=== PATIENT | female | born 1930 | race Caucasian/White ===

== ENCOUNTER → 2016-09-16 | Outpatient (CLI) | payer MEDICARE, OTHER ==
[~2016-09-16] MED LIST: ADVIL200 MG PO; ALEVE 220MG220 MG PO; ALLEGRA 180MG180 MG PO; ALLEGRA ALLERG180 MG PO; ASPIRIN 81M81 MG/TA2 PO; ASPIRIN E.C. 8181 MG PO; ATARAX 25MG25 MG/TAB PO; CALCIUM + D 6001 TA1 PO; CALCIUM CARBONATE; COZAAR100 MG PO; D-31000 IU PO; DOXYCYCLINE 10100 MG PO; EPA FISH OIL1000 MG PO; ESTER-C 5001 TAB PO; FERROUS SULFATE65 MG PO; HALCION0.25 MG PO; LEVAQUIN 5500 MG/TA1 PO; LOPRESSOR 225 MG/TAB PO; MASON NATURAL1200 MG PO; NASACORT AQ N16.5 GM NS; NATURE'S BLE1000 MCG PO; PRILOSEC 20MG20 MG PO; PRINZIDE 12.5 M1 TAB PO; PROBIOTIC-MAJOR PO; ULTRAM 50MG TAB50 MG PO; VITAMIN C500 MG PO; VITAMIN D 1001000 IU PO; ZANTAC 300300 MG PO
== END ==
LOC: MC.RAD 11:21
DX: Z12.31 Encounter for screening mammogram for malignant neoplasm of breast (principal)

== ENCOUNTER → 2017-06-02 | Outpatient (CLI) | payer MEDICARE, OTHER ==
[~2017-06-02] MED LIST changes: +FISH OIL 1000MG1 CAP PO; +IMODIUM 2MG CAPS2 MG PO; +LEVAQUIN 750MG750 M1 PO; +METAMUCIL3.4 GM/DOS PO; +TAMIFLU30 MG PO
== END ==
LOC: COL.RAD 14:00
DX: S09.90XA Unspecified injury of head, initial encounter (principal)

== ENCOUNTER 2017-06-03 12:32 | Inpatient (IN) | payer MEDICARE, OTHER ==
[~2017-06-03] VITALS: Ht 165.1 cm; Wt 61.6 kg
[~2017-06-03 12:32] MED LIST changes: -FISH OIL 1000MG1 CAP PO; -IMODIUM 2MG CAPS2 MG PO; -LEVAQUIN 750MG750 M1 PO; -METAMUCIL3.4 GM/DOS PO; -TAMIFLU30 MG PO
[2017-06-03 14:03] LABS: HEMATOCRIT 41.7 % (37.0-47.0); HEMOGLOBIN 14.2 g/dl (12.5-16.0); MEAN CELL VOLUME 91 fl (80.0-100.0); MEAN CORPUSCULAR HEMOGLOBIN 31 pg (27.0-31.0); MEAN CORPUSCULAR HGB CONC 34 g/dl (33.0-37.0); PLATELET COUNT 215 K/mm3 (130-400); RED BLOOD COUNT 4.61 M/mm3 (4.10-5.30); REDCELL DISTRIBUTION WIDTH-CV 12.6 % (11.5-14.5)
[2017-06-03 14:11] LABS: ALBUMIN 4.3 gm/dL (3.5-5.0); BILIRUBIN,TOTAL 0.7 mg/dL (0.0-1.0); CALCIUM 8.7 mg/dL (8.4-10.2); CREATININE, serum 1.54 mg/dL (0.52-1.25); TOTAL PROTEIN 7.4 gm/dL (6.4-8.2)
[2017-06-03 14:28] LABS: BAND 55 % (0-10); LYMPHOCYTE 2 % (20.0-51.0); NEUTROPHILS 37 % (42.0-75.2)
[2017-06-03 14:29] LABS: PLATELET ESTIMATE NORMAL (NORMAL)
[2017-06-03 14:41] LABS: C-REACTIVE PROTEIN 17.1 mg/dL (0.0-0.9)
[2017-06-03] MEDS ORDERED: FISH OIL 1000MG1 CAP PO (14:59)
[2017-06-03] MEDS ORDERED: IMODIUM 2MG CAPS2 MG PO (15:00)
[2017-06-03] MEDS ORDERED: METAMUCIL3.4 GM/DOS PO (15:01)
[2017-06-03 15:02] LABS: ARTERIAL BLD GAS O2 SATURATION 90.4 % (92-100); ARTERIAL BLD GAS TCO2 CT 21.3; ARTERIAL BLOOD GAS BASE EXCESS -3.3 (-2-2); ARTERIAL BLOOD GAS HCO3 20.3 meq/L (22-26); ARTERIAL BLOOD GAS PCO2 32.3 mmHg (35-45); ARTERIAL BLOOD GAS pH 7.42 (7.35-7.45)
[2017-06-03 16:09] LABS: COLLECTION METHOD CLEAN CATCH
[2017-06-03 16:19] LABS: GRANULAR CAST >12 /lpf; HYALINE CAST >12 /lpf; MUCOUS Present /lpf; PH 5 (5-8); SQUAMOUS EPITHELIAL 0-2 /hpf; URINE APPEARANCE Hazy; URINE BACTERIA Rare /hpf; URINE BILIRUBIN Negative (NEGATIVE); URINE BLOOD 2+ (NEGATIVE); URINE COLOR Yellow; URINE GLUCOSE Negative (NEGATIVE); URINE KETONE Negative (NEGATIVE); URINE LEUKOCYTE ESTERASE 3+ (NEGATIVE); URINE NITRATE Negative (NEGATIVE); URINE PROTEIN(semi-quant) 1+ (NEGATIVE); URINE UROBILINOGEN Negative (NEGATIVE)
[2017-06-03 17:32] VITALS: BP 116/50; PULSE 84; TEMP 98.4
[2017-06-03 20:37] VITALS: BP 122/93; PULSE 87; TEMP 98.8
[2017-06-03 23:50] VITALS: BP 128/62; PULSE 94; TEMP 98.5
[2017-06-04 03:45] VITALS: BP 111/46; PULSE 85; TEMP 98.3
[2017-06-04 06:45] LABS: MEAN CELL VOLUME 92 fl (80.0-100.0); MEAN CORPUSCULAR HGB CONC 34 g/dl (33.0-37.0); MEAN PLATELET VOLUME 12.2 fl (7.4-10.4); PLATELET COUNT 189 K/mm3 (130-400); RED BLOOD COUNT 3.78 M/mm3 (4.10-5.30); REDCELL DISTRIBUTION WIDTH-CV 12.9 % (11.5-14.5)
[2017-06-04 06:58] LABS: CALCIUM 7.5 mg/dL (8.4-10.2); CREATININE, serum 0.88 mg/dL (0.52-1.25); MAGNESIUM 1.8 mg/dL (1.6-2.3); POTASSIUM 3.6 mmol/L (3.4-5.0)
[2017-06-04 07:07] LABS: HEMATOCRIT 34.9 % (37.0-47.0); HEMOGLOBIN 11.7 g/dl (12.5-16.0); MEAN CORPUSCULAR HEMOGLOBIN 31 pg (27.0-31.0)
[2017-06-04 08:40] VITALS: BP 118/63; PULSE 70; TEMP 98.7
[2017-06-04 09:05] LABS: BAND 33 % (0-10); LYMPHOCYTE 4 % (20.0-51.0); NEUTROPHILS 62 % (42.0-75.2); PLATELET ESTIMATE NORMAL (NORMAL)
[2017-06-04 12:36] VITALS: BP 121/44; PULSE 80; TEMP 97.9
[2017-06-04 15:55] VITALS: BP 122/82; PULSE 96; TEMP 98.3
[2017-06-04 20:17] VITALS: BP 126/78; PULSE 97; TEMP 98.3
[2017-06-04 23:16] VITALS: BP 159/63; PULSE 88; TEMP 99
[2017-06-05 03:45] VITALS: BP 133/70; PULSE 85; TEMP 97.5
[2017-06-05 06:52] LABS: MEAN CELL VOLUME 93 fl (80.0-100.0); MEAN CORPUSCULAR HGB CONC 33 g/dl (33.0-37.0); MEAN PLATELET VOLUME 11.6 fl (7.4-10.4); PLATELET COUNT 238 K/mm3 (130-400); RED BLOOD COUNT 3.65 M/mm3 (4.10-5.30); REDCELL DISTRIBUTION WIDTH-CV 13.1 % (11.5-14.5)
[2017-06-05 06:56] LABS: HEMATOCRIT 33.9 % (37.0-47.0); HEMOGLOBIN 11.2 g/dl (12.5-16.0); MEAN CORPUSCULAR HEMOGLOBIN 31 pg (27.0-31.0)
[2017-06-05 07:08] LABS: CALCIUM 7.8 mg/dL (8.4-10.2); CREATININE, serum 0.71 mg/dL (0.52-1.25); POTASSIUM 3.6 mmol/L (3.4-5.0)
[2017-06-05 07:50] LABS: BAND 29 % (0-10); LYMPHOCYTE 9 % (20.0-51.0); NEUTROPHILS 57 % (42.0-75.2)
[2017-06-05 07:51] LABS: PLATELET ESTIMATE NORMAL (NORMAL)
[2017-06-05 08:25] VITALS: BP 143/56; PULSE 97; TEMP 98
[2017-06-05 11:04] VITALS: BP 140/52; PULSE 73; TEMP 97.6
[2017-06-05 16:02] VITALS: BP 136/58; PULSE 83; TEMP 98.2
[2017-06-05 19:37] VITALS: BP 130/61; PULSE 92; TEMP 97.6
[2017-06-05 23:48] VITALS: BP 115/62; PULSE 73; TEMP 98
[2017-06-06 04:10] VITALS: BP 143/59; PULSE 81; TEMP 97.5
[2017-06-06 06:50] LABS: MEAN CELL VOLUME 92 fl (80.0-100.0); MEAN CORPUSCULAR HGB CONC 33 g/dl (33.0-37.0); MEAN PLATELET VOLUME 10.8 fl (7.4-10.4); PLATELET COUNT 328 K/mm3 (130-400); RED BLOOD COUNT 3.73 M/mm3 (4.10-5.30); REDCELL DISTRIBUTION WIDTH-CV 13.1 % (11.5-14.5)
[2017-06-06 06:58] LABS: HEMATOCRIT 34.3 % (37.0-47.0); HEMOGLOBIN 11.3 g/dl (12.5-16.0); MEAN CORPUSCULAR HEMOGLOBIN 30 pg (27.0-31.0)
[2017-06-06 07:09] LABS: CALCIUM 7.9 mg/dL (8.4-10.2); CREATININE, serum 0.68 mg/dL (0.52-1.25); POTASSIUM 3.1 mmol/L (3.4-5.0)
[2017-06-06 07:35] LABS: BAND 6 % (0-10); LYMPHOCYTE 10 % (20.0-51.0); NEUTROPHILS 75 % (42.0-75.2)
[2017-06-06 07:37] LABS: PLATELET ESTIMATE NORMAL (NORMAL)
[2017-06-06 08:01] VITALS: BP 151/76; PULSE 86; TEMP 98.4
[2017-06-06] MEDS ORDERED: TAMIFLU30 MG PO (08:40)
[2017-06-06] MEDS ORDERED: LEVAQUIN 750MG750 M1 PO (08:41)
[2017-06-06 09:44] VITALS: BP 151/76; PULSE 86; TEMP 98.4
== END 2017-06-06 11:54 | DRG 871 ==
LOC: COL.ER 12:32 → MEDICAL 14:34
PROVIDERS: Family Medicine; Nurse Practitioner Family; Physician Assistant
DX: A41.89 Other specified sepsis (principal); J10.00 Influenza due to other identified influenza virus with unspecified type of pneumonia; J18.9 Pneumonia, unspecified organism; N17.9 Acute kidney failure, unspecified; N39.0 Urinary tract infection, site not specified; Z85.3 Personal history of malignant neoplasm of breast; Z85.828 Personal history of other malignant neoplasm of skin; I10 Essential (primary) hypertension; E87.6 Hypokalemia; E86.0 Dehydration
CPT/HCPCS: 99222-AI; 99231-AI; 99232-AI; 99239; J1644; J1956; J2405; J7030

== ENCOUNTER 2017-07-25 13:01 | Outpatient (RCR) | payer MEDICARE, OTHER ==
[~2017-07-25 13:01] MED LIST changes: +FISH OIL 1000MG1 CAP PO; +IMODIUM 2MG CAPS2 MG PO; +LEVAQUIN 750MG750 M1 PO; +METAMUCIL3.4 GM/DOS PO; +TAMIFLU30 MG PO
== END 2017-08-14 12:18 | disposition home or self-care (01) ==
LOC: WSPT 13:01
DX: I89.0 Lymphedema, not elsewhere classified (principal)
CPT/HCPCS: G8978-GP; G8979-GP; G8980-GP

== ENCOUNTER → 2019-02-17 | Outpatient (CLI) | payer MEDICARE, OTHER | LOC: MC.RAD 09:02 | DX: C50.912 Malignant neoplasm of unspecified site of left female breast (principal) | CPT/HCPCS: G0279 ==

== ENCOUNTER → 2020-04-06 | Outpatient (CLI) | payer MEDICARE, OTHER | LOC: COL.RAD 13:09 | DX: R41.3 Other amnesia (principal) | CPT/HCPCS: A9585 ==

== ENCOUNTER 2020-08-26 19:06 | Emergency (ER) | payer MEDICARE, OTHER ==
[~2020-08-26] VITALS: Ht 165.1 cm; Wt 59.1 kg
[2020-08-26 21:11] LABS: LIPASE 187 U/L (23-300)
[2020-08-26 21:22] LABS: BASO # 0.1 (0.0-0.2); EOS # 0.1 (0.0-0.7); EOS % 0.7 % (0-4.0); GRAN # 7.7 (1.4-6.5); GRAN % 66.9 % (42.2-75.2); HEMATOCRIT 45.3 % (37.0-47.0); LYMPH # 2.8 (1.2-3.4); LYMPH % 23.9 % (20.0-51.0); MEAN CELL VOLUME 96 fl (80.0-100.0); MEAN CORPUSCULAR HEMOGLOBIN 30 pg (27.0-31.0); MEAN CORPUSCULAR HGB CONC 31 g/dl (33.0-37.0); MEAN PLATELET VOLUME 9.5 fl (7.4-10.4); MONO # 0.8 (0.1-0.6); MONO % 7.2 % (1.7-9.3); PLATELET COUNT 444 K/mm3 (130-400); RED BLOOD COUNT 4.71 M/mm3 (4.10-5.30); REDCELL DISTRIBUTION WIDTH-CV 12.4 % (11.5-14.5)
[2020-08-26 21:32] LABS: INR 0.9 (0.8-3.0)
[2020-08-26 21:40] LABS: ALANINE AMINOTRANSFERASE 12 U/L (4-34); ALBUMIN 4.1 gm/dL (3.5-5.0); ALKALINE PHOSPHATASE 124 U/L (50-136); ANION GAP 5 mmol/L (7-16); AST,SGOT 30 U/L (15-37); BILIRUBIN,TOTAL 0.3 mg/dL (0.0-1.0); BLOOD UREA NITROGEN 19 mg/dL (7-17); CALCIUM 9.8 mg/dL (8.4-10.2); CARBON DIOXIDE 28 mmol/L (22-30); CHLORIDE 106 mmol/L (98-107); CREATININE, serum 1.22 (0.52-1.25); GLUCOSE 106 mg/dL (74-106); POTASSIUM 4.3 mmol/L (3.4-5.0); SODIUM 139 mmol/L (137-145); TOTAL PROTEIN 7.3 gm/dL (6.4-8.2)
[2020-08-26 21:52] LABS: TROPONIN-I < 0.012 ng/mL (0.000-0.035)
[2020-08-26 22:29] LABS: COLLECTION METHOD CLEAN CATCH
[2020-08-26 22:37] LABS: MUCOUS Present /lpf; PH 5 (5-8); URINE APPEARANCE Hazy; URINE BACTERIA Rare /hpf; URINE BILIRUBIN Negative (NEGATIVE); URINE BLOOD 1+ (NEGATIVE); URINE COLOR Yellow; URINE GLUCOSE Negative (NEGATIVE); URINE KETONE Trace (NEGATIVE); URINE LEUKOCYTE ESTERASE Negative (NEGATIVE); URINE NITRATE Negative (NEGATIVE); URINE PROTEIN(semi-quant) 2+ (NEGATIVE); URINE UROBILINOGEN Negative (NEGATIVE)
[2020-08-26] MEDS ORDERED: NAMENDA5 MG PO (23:45)
[2020-08-26] MEDS ORDERED: ARICEPT10 MG PO (23:46)
[2020-08-27] MEDS ORDERED: FLOMAX 0.40.4 MG/CAP PO (00:15)
[2020-08-27 00:55] VITALS: BP 159/79; PULSE 65; TEMP 97.6
== END 2020-08-27 00:59 | disposition home or self-care (01) ==
LOC: COL.ER 19:06
PROVIDERS: Emergency Medicine
DX: N13.2 Hydronephrosis with renal and ureteral calculous obstruction (principal); Z87.440 Personal history of urinary (tract) infections
CPT/HCPCS: J2405; J3010; J7030

== ENCOUNTER 2021-02-21 13:25 | Emergency (ER) | payer MEDICARE, OTHER ==
[~2021-02-21] VITALS: Ht 165.1 cm; Wt 59.1 kg
[~2021-02-21 13:25] MED LIST changes: +ARICEPT10 MG PO; +FLOMAX 0.40.4 MG/CAP PO; +NAMENDA5 MG PO
[2021-02-21 15:14] LABS: BASO # 0.1 K/mm3 (0.0-0.2); BASO % 1.1 % (0.0-2.0); EOS % 0.1 % (0-4.0); GRAN # 7.5 K/mm3 (1.4-6.5); HEMATOCRIT 44.9 % (37.0-47.0); HEMOGLOBIN 14.1 g/dl (12.5-16.0); LYMPH # 1.6 K/mm3 (1.2-3.4); LYMPH % 16.2 % (20.0-51.0); MEAN CELL VOLUME 93 fl (80.0-100.0); MEAN CORPUSCULAR HEMOGLOBIN 29 pg (27.0-31.0); MEAN CORPUSCULAR HGB CONC 31 g/dl (33.0-37.0); MEAN PLATELET VOLUME 10.2 fl (7.4-10.4); MONO # 0.6 K/mm3 (0.1-0.6); MONO % 6.4 % (1.7-9.3); PLATELET COUNT 358 K/mm3 (130-400); RED BLOOD COUNT 4.83 M/mm3 (4.10-5.30); REDCELL DISTRIBUTION WIDTH-CV 14.2 % (11.5-14.5)
[2021-02-21 15:29] LABS: ALBUMIN 3.9 gm/dL (3.4-4.8); CALCIUM 9.3 mg/dL (8.4-10.2); CREATININE, serum 0.98 mg/dL (0.57-1.11); POTASSIUM 4.2 mmol/L (3.5-4.5); TOTAL PROTEIN 7.2 gm/dL (6.2-8.1)
--- NOTE | 2021-02-21 15:30 | NUR ---
lawn service worker met with patient and her daughter, Vielka Mendez #[phone] as patient wandered from her home and daughter found her at the [facility] police department. Patient is unaware how she got to the police department. Worker provided information on local facilities that have secured apartments/manager terminal care. Patient currently has filbert grower services through [facility] [employer] on 4 days/week from 10:00-12:00. Worker discussed need for someone to be with patient all day/night for safety. Worker contacted Lauren at [facility] as well as Rachel, field staff manager at Dr Alston's office (as patient has new patient appointment with Dr Alston on Mar 01)advising of the current ED visit and concerns. Vielka states that patient has a manager terminal care insurance policy and that her sister is currently completing application for [employer]. 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 Patient will be discharged home to daughter's care from the ED. Worker met with ED physician and advised of the above information.
[2021-02-21 15:35] LABS: COLLECTION METHOD CLEAN CATCH
[2021-02-21 15:42] LABS: PH 6 (5-8); SQUAMOUS EPITHELIAL None Seen /hpf (0-10); URINE APPEARANCE Clear (CLEAR/HAZY); URINE BACTERIA None Seen (NONE SEEN); URINE BILIRUBIN Negative (NEGATIVE); URINE BLOOD 1+ (NEGATIVE); URINE COLOR Yellow (YELLOW); URINE GLUCOSE Negative (NEGATIVE); URINE KETONE 1+ (NEGATIVE); URINE LEUKOCYTE ESTERASE Negative (NEGATIVE); URINE NITRATE Negative (NEGATIVE); URINE PROTEIN(semi-quant) Negative (NEGATIVE); URINE UROBILINOGEN Negative (NEGATIVE)
[2021-02-21 16:20] VITALS: BP 168/64; PULSE 74; TEMP 98.1
== END 2021-02-21 16:20 | disposition home or self-care (01) ==
LOC: COL.ER 13:25
PROVIDERS: Personal Emergency Response Attendant
DX: F03.90 Unspecified dementia, unspecified severity, without behavioral disturbance, psychotic disturbance, mood disturbance, and anxiety (principal); I10 Essential (primary) hypertension; Z79.899 Other long term (current) drug therapy